=== PATIENT | female | born 1965 | race African-American/Black ===

== ENCOUNTER 2025-07-03 12:55 | Emergency (ER) | payer OTHER, SELFPAY ==
[2025-07-03 12:58] VITALS: BP 159/89
--- NOTE | 2025-07-03 15:08 | ED.GENMED ---
History of Present Illness
<CHAUNCEY Martinez - Last Filed: 07/04/25 08:04>
General
Chief Complaint: Cough
Source: patient
Exam Limitations: none
Time Seen by Provider: 07/03/25 14:51
Nursing documentation reviewed up to this point in time: agreed with
History of Present Illness
History of Present Illness:
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 Urbina presents to the ER for evaluation. Patient reports she has had a cold
for the past 2 weeks but denies any fever or chills. Yesterday morning she coughed up a small amount of blood and this morning she did as well. She reports it only happened in the morning. This morning was about a quarter size. She denies any
shortness of breath recent fever or chills.
Patient presented with labs on her portal from [facility] her hemoglobin last was 9.3
She is not anticoagulated
Phy Exam
<CHAUNCEY Martinez - Last Filed: 07/04/25 08:04>
General Physical Exam
General Presentation: no apparent distress
General age: appears stated age
General Skin: warm and dry
General Habitus: normal
General Mental: alert
General Hydration: appears well hydrated
Cardiovascular Exam
Cardiovascular Exam: regular rate/rhythm, no murmur and normal peripheral pulses
Pulmonary Exam
Pulmonary Exam: lungs clear, no respiratory distress and other (No hemoptysis here)
Gastrointestinal Exam
Gastrointestinal Exam: non tender, soft and other (rectal exam: brown stool heme negative )
Neurological Exam
Neurological Exam: alert and oriented x3
Musculoskeletal Exam
Musculoskeletal Exam: full ROM
Skin Exam
Skin Exam: normal color and warm/dry
Psychiatric Exam
Psychiatric Exam: normal mood/affect
Course
<CHAUNCEY Martinez - Last Filed: 07/04/25 08:04>
Orders/Labs/Results
Orders:
Orders
07/03/25 15:08
Cardiac Monitoring- Treatment ONCE
IV Insert/Care/Rem.- Treatment PRN
07/03/25 15:10
Electrocardiogram (*1) Stat
Reason for Study: Abdominal Pain
EKG- Treatment ONCE
07/03/25 15:36
CT Chest PE Study Urgent
Comment:
Reason For Exam: hemoptysis hx of bowel/liver cancer
07/03/25 16:03
Complete Blood Count/With Diff Urgent
Comprehensive Metabolic Panel Urgent
Abnormal Lab Results
07/03/25
16:03
WBC 3.5 L 10^3/uL
(4.8-10.8)
RBC 2.54 L 10^6/uL
(4.20-5.40)
Hgb 9.0 L g/dL
(12.0-16.0)
Hct 25.6 L %
(37.0-47.0)
MCV 100.8 H fL
(81.0-99.0)
MCH 35.4 H pg
(27.0-31.0)
RDW 15.7 H %
(11.5-14.5)
Plt Count 125 L 10^3/uL
(130-400)
MPV 11.1 H fL
(7.4-10.4)
Absolute Neuts (auto) 1.2 L 10^3/uL
(1.4-6.5)
Neutrophils % 34.3 L %
(42.2-75.2)
Monocytes % 16.7 H %
(1.7-9.3)
Chloride 108 H mmol/L
(98-107)
Glucose 126 H mg/dl
(70-99)
Calcium 8.2 L mg/dl
(8.4-10.2)
Total Bilirubin 4.0 H mg/dl
(0.2-1.3)
AST 92 H U/L
(14-36)
ALT 92 H U/L
(0-35)
Alkaline Phosphatase 360 H U/L
(38-126)
Albumin 3.3 L g/dl
(3.5-5.0)
07/03/25 16:03
07/03/25 16:03
Vital Signs
Initial and Last Documented VS:
Initial Vital Signs
Temp Pulse Resp BP Pulse Ox
97.9 F 100 18 159/89 98
07/03/25 12:58 07/03/25 12:58 07/03/25 12:58 07/03/25 12:58 07/03/25 12:58
Last Documented Vital Signs
Temp Pulse Resp BP Pulse Ox
97.9 F 86 21 134/82 97
07/03/25 12:58 07/03/25 18:47 07/03/25 18:47 07/03/25 18:46 07/03/25 17:00
Blunger Machine Operator consulted with Physician
Blunger Machine Operator consulted with physician?: Yes
Name of Physician Consulted: Luz Maria
<Kimberly Corral PA-C - Last Filed: 07/03/25 19:44>
Orders/Labs/Results
Orders:
Orders
07/03/25 15:08
Cardiac Monitoring- Treatment ONCE
IV Insert/Care/Rem.- Treatment PRN
07/03/25 15:10
Electrocardiogram (*1) Stat
Reason for Study: Abdominal Pain
EKG- Treatment ONCE
07/03/25 15:36
CT Chest PE Study Urgent
Comment:
Reason For Exam: hemoptysis hx of bowel/liver cancer
07/03/25 16:03
Complete Blood Count/With Diff Urgent
Comprehensive Metabolic Panel Urgent
Abnormal Lab Results
07/03/25
16:03
WBC 3.5 L 10^3/uL
(4.8-10.8)
RBC 2.54 L 10^6/uL
(4.20-5.40)
Hgb 9.0 L g/dL
(12.0-16.0)
Hct 25.6 L %
(37.0-47.0)
MCV 100.8 H fL
(81.0-99.0)
MCH 35.4 H pg
(27.0-31.0)
RDW 15.7 H %
(11.5-14.5)
Plt Count 125 L 10^3/uL
(130-400)
MPV 11.1 H fL
(7.4-10.4)
Absolute Neuts (auto) 1.2 L 10^3/uL
(1.4-6.5)
Neutrophils % 34.3 L %
(42.2-75.2)
Monocytes % 16.7 H %
(1.7-9.3)
Chloride 108 H mmol/L
(98-107)
Glucose 126 H mg/dl
(70-99)
Calcium 8.2 L mg/dl
(8.4-10.2)
Total Bilirubin 4.0 H mg/dl
(0.2-1.3)
AST 92 H U/L
(14-36)
ALT 92 H U/L
(0-35)
Alkaline Phosphatase 360 H U/L
(38-126)
Albumin 3.3 L g/dl
(3.5-5.0)
07/03/25 16:03
07/03/25 16:03
Vital Signs
Initial and Last Documented VS:
Initial Vital Signs
Temp Pulse Resp BP Pulse Ox
97.9 F 100 18 159/89 98
07/03/25 12:58 07/03/25 12:58 07/03/25 12:58 07/03/25 12:58 07/03/25 12:58
Last Documented Vital Signs
Temp Pulse Resp BP Pulse Ox
97.9 F 86 21 134/82 97
07/03/25 12:58 07/03/25 18:47 07/03/25 18:47 07/03/25 18:46 07/03/25 17:00
<CHAUNCEY Martinez - Last Filed: 07/04/25 08:04>
MDM/Problems Addressed
Differential Diagnosis Includes:
Not limited to URI, less likely PE pneumonia
MDM/Problems Addressed:
As documented patient is a 60-year-old female with liver cancer currently undergoing chemotherapy followed at [facility] presented for 2 episodes of coughing up blood 1 episode yesterday morning 1 episode today. She has been coughing for the past 2
weeks mild cold symptoms no fever no complaints of shortness of breath she is not anticoagulated. She has had no hemoptysis here. She initially mentioned her stools were pink-tinged however rectal exam shows grayish color stools heme-negative.
Her hemoglobin today is 9.0 this is baseline her last hemoglobin done from [facility] was 9.3 .
She has no acute distress nonhypoxic nontachypneic nontachycardic will CT chest to ensure no PE and if negative will have her follow-up with her oncologist. She has appointment scheduled July 06 in the next several days.
Discussed with ED physician.
<CHAUNCEY Martinez - Last Filed: 07/04/25 08:04>
*Radiology
Radiology exam reviewed: radiology read reviewed
*Pulse Oximetry
SaO2: 98
Oxygen Mode of Delivery: Room air
Patient hypoxic: no
<Kimberly Corral PA-C - Last Filed: 07/03/25 19:44>
*Critical Care Note
Total Time (30-74mins, 75-104mins- exclusive of procedures): Not Applicable
<Kimberly Corral PA-C - Last Filed: 07/03/25 19:44>
Update Note
Update Note:
Update 6:50 PM: Assumed care of patient pending PE study. CT PE shows no evidence of pulmonary embolism or other acute findings. Patient remains hemodynamically stable and has had no episodes of hemoptysis. She is not hypoxic. Ultimate�feel
stable for discharge home with outpatient oncology follow-up as scheduled. Return precautions discussed. Patient comfortable with plan.
ED Attending Note
<CHAUNCEY Martinez - Last Filed: 07/04/25 08:04>
-
Portions of this chart may have been created with voice recognition software.� Occasional wrong word or��sound alike� substitutions may have occurred due to the inherent limitations of voice recognition software.
Discharge Plan
Departure
Patient Disposition: Home (Routine Discharge)
Date of Disposition: 07/03/25
Time of Disposition: 18:53
Patient with high blood pressure during this ER visit?: Yes
Condition: Fair
Covid-19: Not Applicable
Discharge Problem:
Hemoptysis
Instructions: Cough, Adult (DC), Coughing up blood, BLOOD PRESSURE
Referrals:
Camron Harry MD [Family Provider]
Activity Restrictions/Additional Instructions:
Follow-up with your oncologist as scheduled this week. Return if any worsening of symptoms.
Interventions
Interventions:
*Risk Screen - Suicide Last Done: 07/03/25 12:58
*General Assessment Last Done: 07/03/25 18:58
*Neglect/Abuse Screening Last Done: 07/03/25 18:59
*ED- Fall Risk Assessment Last Done: 07/03/25 18:59
*ED COVID-19 Vaccine History Last Done: 07/03/25 16:04
*ED Influenza Vaccine History Last Done: 07/03/25 16:04
*Nursing Disposition Last Done: 07/03/25 18:59
ED- Pulmonary Assessment Last Done: 07/03/25 17:00
Discharge Date and Time
Print Language: CONGOLESE
[2025-07-03 16:02] VITALS: BMI 23.2
[2025-07-03 16:07] VITALS: BP 141/80
[2025-07-03 16:21] LABS: Hematocrit 25.6 % (37.0-47.0); Hemoglobin 9.0 g/dL (12.0-16.0); Mean Corp Hgb Conc. 35.2 g/dL (33.0-37.0); Mean Corpuscular Volume 100.8 fL (81.0-99.0); Nucleated Red Blood Cells % 0 %; Platelet Count 125 10^3/uL (130-400); Red Cell Dist. Width 15.7 % (11.5-14.5)
[2025-07-03 16:28] LABS: ALT (SGPT) 92 U/L (0-35); AST (SGOT) 92 U/L (14-36); Albumin 3.3 g/dl (3.5-5.0); Alkaline Phosphatase 360 U/L (38-126); Blood Urea Nitrogen 13 mg/dl (7-17); Calcium 8.2 mg/dl (8.4-10.2); Carbon Dioxide 24 mmol/L (22-30); Chloride 108 mmol/L (98-107); Estimated Creatinine Clearance 95 ml/min; Glucose 126 mg/dl (70-99); Potassium 3.6 mmol/L (3.5-5.1); Sodium 137 mmol/L (135-145); Total Protein 8.1 g/dl (6.3-8.2); eGFR > 60.00
[2025-07-03 17:00] VITALS: BP 135/79
[2025-07-03 18:46] VITALS: BP 134/82
== END 2025-07-03 18:59 | disposition home or self-care (01) ==
LOC: EMR 12:55
PROVIDERS: Nurse Practitioner; EMERGENCY PHYSICIAN Emergency Medicine; FAMILY PHYSICIAN Internal Medicine
DX: R04.2 Hemoptysis (principal); R42 Dizziness and giddiness; R03.0 Elevated blood-pressure reading, without diagnosis of hypertension; E11.9 Type 2 diabetes mellitus without complications; J45.909 Unspecified asthma, uncomplicated; Z79.4 Long term (current) use of insulin; Z85.05 Personal history of malignant neoplasm of liver; Z92.21 Personal history of antineoplastic chemotherapy; Z98.0 Intestinal bypass and anastomosis status
CPT/HCPCS: 99284; 71275; 80053; 85025; 93005; Q9967